=== PATIENT | female | born 1965 | race American Indian/Alaskan Native ===

== ENCOUNTER 2018-04-15 19:16 | Emergency (ER) | payer OTHER ==
[2018-04-15] MEDS ORDERED: Sodium Chloride 0.9% 1,000 ML IV STA (20:07)
--- NOTE | 2018-04-15 20:14 | ED PDOC ---
Arrival/HPI - General Chief Complaint: Abdominal Pain Time Seen by Provider: 04/15/18 19:36 Historian: Patient - History of Present Illness Narrative History of Present Illness (Text): 04/15/18 20:06 Sindi Dolan is a 53 year old female, whose past medical history includes diabetes, who presents to the Emergency department complaining of burning abdominal /stomach discomfort, which she has been having intermittently for "a while." Patient states she has been seen and evaluated prior by her doctor months ago and for which she has undergone CT scan, upper endoscopy, and colonoscopy. Patient states they have been unable to find anything "wrong." Patient admits to intermittent diarrhea. Patient denies any nausea, vomiting, urinary symptoms, back pain, or any other complaints. Patient reports her appetite intact and is currently on a PPI. Symptom Onset: Gradual Symptom Course: Unchanged Activities at Onset: Light Context: Home Past Medical History - Provider Review Nursing Documentation Reviewed: Yes - Infectious Disease Hx of Infectious Diseases: None - Cardiac Hx Cardiac Disorders: No - Endocrine/Metabolic Hx Diabetes Mellitus Type 2: Yes - Musculoskeletal/Rheumatological Other/Comment: neuropathy - Psychiatric Hx Substance Use: No - Anesthesia Hx Anesthesia: No Family/Social History - Physician Review Nursing Documentation Reviewed: Yes Family/Social History: Unknown Family HX Smoking Status: Smoker Currrent Status Unknown Hx Alcohol Use: Yes Frequency of alcohol use: Socially Hx Substance Use: No Allergies/Home Meds Allergies/Adverse Reactions: Allergies No Known Allergies Allergy (Verified 04/15/18 19:36) Home Medications: Home Meds Medication Instructions Recorded Confirmed Gabapentin [Neurontin] 800 mg PO BID 04/15/18 04/15/18 Review of Systems - Physician Review All systems were reviewed & negative as marked: Yes - Review of Systems Constitutional: Normal. absent: Fevers Eyes: Normal ENT: Normal Respiratory: Normal. absent: SOB, Cough Cardiovascular: Normal. absent: Chest Pain Gastrointestinal: Abdominal Pain, Diarrhea. absent: Nausea, Vomiting Genitourinary Female: Normal. absent: Dysuria, Frequency, Hematuria, Urine Output Changes Musculoskeletal: Normal. absent: Back Pain, Neck Pain Skin: Normal. absent: Rash Neurological: Normal. absent: Headache, Dizziness Endocrine: Normal Hemo/Lymphatic: Normal Psychiatric: Normal Physical Exam Vital Signs Reviewed: Yes Temperature: Afebrile Blood Pressure: Normal Pulse: Regular Respiratory Rate: Normal Appearance: Positive for: Well-Appearing, Non-Toxic, Comfortable Pain Distress: None Mental Status: Positive for: Alert and Oriented X 3 - Systems Exam Head: Present: Atraumatic, Normocephalic Pupils: Present: PERRL Extroacular Muscles: Present: EOMI Conjunctiva: Present: Normal Mouth: Present: Moist Mucous Membranes Neck: Present: Normal Range of Motion. No: Meningeal Signs, MIDLINE TENDERNESS, Paraspinal Tenderness Respiratory/Chest: Present: Clear to Auscultation, Good Air Exchange. No: Respiratory Distress, Accessory Muscle Use Cardiovascular: Present: Regular Rate and Rhythm, Normal S1, S2. No: Murmurs Abdomen: Present: Normal Bowel Sounds. No: Tenderness, Distention, Peritoneal Signs Back: Present: Normal Inspection Upper Extremity: Present: Normal Inspection. No: Cyanosis, Edema Lower Extremity: Present: Normal Inspection. No: Edema Neurological: Present: GCS=15, CN II-XII Intact, Speech Normal Skin: Present: Warm, Dry, Normal Color. No: Rashes Psychiatric: Present: Alert, Oriented x 3, Normal Insight, Normal Concentration Medical Decision Making ED Course and Treatment: 04/15/18 20:06 Impression: 53 year old female complaining of intermittent burning abdominal discomfort and diarrhea. Plan: -- EKG -- Chest X-ray -- Labs, lipase -- IV fluids -- Toradol -- Pepcid -- Reassess and disposition Prior Visits: Notes and results from previous visits were reviewed. Progress Notes: Reviewed EKG, NSR at 95 bpm. Early repolarization. No acute changes. - EKG Interpretation Interpreted by ED Physician: Yes Type: 12 lead EKG - Scribe Statement The provider has reviewed the documentation as recorded by the Vahe Campbell Provider Scribe Attestation: All medical record entries made by the Scribenma were at my direction and personally dictated by me. I have reviewed the chart and agree that the record accurately reflects my personal performance of the history, physical exam, medical decision making, and the department course for this patient. I have also personally directed, reviewed, and agree with the discharge instructions and disposition. Disposition/Present on Arrival - Present on Arrival Any Indicators Present on Arrival: No History of DVT/PE: No History of Uncontrolled Diabetes: No Urinary Catheter: No History of Decub. Ulcer: No History Surgical Site Infection Following: None - Disposition Have Diagnosis and Disposition been Completed?: Yes Diagnosis: Gastritis Disposition: HOME/ ROUTINE Disposition Time: 23:42 Patient Plan: Discharge Condition: GOOD Discharge Instructions (ExitCare): Gastritis (DC) Additional Instructions: Take meds as prescribed/avoid caffeinated beverages/spicy foods/alcohol/follow up with your doctor this week Prescriptions: Phenobarb/Hyoscy/Atropine/Scop [ Tablet] 16.2 mg PO Q6 PRN #14 tablet PRN Reason: Dyspepsia Forms: [employer] (Lebanese)
[2018-04-15 20:44] LABS: MEAN CORPUSCULAR HEMOGLOBIN 30.9 pg (25.0-35.0); MEAN CORPUSCULAR HGB CONC 33.2 g/dl (31.0-37.0); MEAN PLATELET VOLUME 8.6 fl (7.0-11.0); RBC 3.56 10^6/uL (3.5-6.1); RED CELL DISTRIBUTION WIDTH 12.1 % (11.5-14.5); WHITE BLOOD COUNT 7.3 10^3/uL (4.5-11.0)
[2018-04-15 20:54] LABS: ALB/GLOB RATIO 1.2 (1.1-1.8); BLOOD UREA NITROGEN 8 mg/dL (7-21); CALCIUM 9.7 mg/dL (8.4-10.5); GFR NON-AFRICAN AMERICAN > 60; LIPASE 75 U/L (23-300)
[2018-04-15 21:05] LABS: ALT/SGPT 24 U/L (7-56); AST/SGOT 27 U/L (14-36)
[2018-04-15] MEDS ORDERED: Morphine 2 mg/ml ISec IVP STA (22:18)
[2018-04-16 00:30] VITALS: BP 130/82; PULSE 82; RESP 17; TEMP 98.1; O2SAT 98
--- NOTE | 2018-04-16 12:32 | CARD ---
APPROVED REPORT Date of service: 04/15/2018 EKG Measurement Heart [id number] <Conclusion> Normal sinus rhythm ST elevation, probably due to early repolarization Borderline ECG
== END 2018-04-16 00:30 | disposition home or self-care (01) ==
LOC: MERGE 19:16 → ED 19:16
DX: K29.70 Gastritis, unspecified, without bleeding (principal); E11.9 Type 2 diabetes mellitus without complications
CPT/HCPCS: 80053; 83690; 85027; 93005; 96374; 96375; 99284; J1885; J2270; J7030